=== PATIENT | female | born 1960 | race Caucasian/White ===

== ENCOUNTER → 2018-06-14 08:46 | Outpatient (CLI) | payer OTHER, SELFPAY ==
[2018-06-14 09:17] LABS: Hematocrit 42.3 % (36-46); Hemoglobin 14.7 g/dL (12.0-16.0); Mean Corpuscular HGB Conc 34.7 % (30-36); Mean Corpuscular Hemoglobin 31.3 PG (26-34); Mean Corpuscular Volume 90.4 fL (80-100); Platelet Count 151 X10^3/uL (150-400); Red Blood Cell Count 4.67 X10^6/uL (4.0-5.2); Red Cell Distribution Width 13.3 % (11.6-14.8); White Blood Cell Count 6.3 X10^3/uL (4.5-11.0)
[2018-06-14 09:18] LABS: Add Manual Diff / Slide Review YES
[2018-06-14 09:33] LABS: Morphology Comment Normal Morphology; Neutrophils Absolute Manual 2646 /uL (3000-5900); Total Cells Counted 100
[2018-06-14 10:04] LABS: Alanine Aminotransferase 82 IU/L (9-52); Albumin 3.9 g/dL (3.5-5.0); Albumin Globulin Ratio 1.6 (1.0-2.8); Alkaline Phosphatase 60 U/L (38-126); Aspartate Aminotransferase 38 IU/L (14-36); Bilirubin Total 0.5 mg/dL (0.2-1.3); Blood Urea Nitrogen 16 mg/dL (7-17); Calcium 8.8 mg/dL (8.4-10.2); Carbon Dioxide 23 mmol/L (22-32); Chloride 107 mmol/L (98-107); Cholesterol 135 mg/dL (140-199); Estimated Glomerular Filt Rate > 60.0 mL/min (>60); Globulin 2.5 g/dL (1.7-4.1); Glucose 96 mg/dL (70-100); HDL Cholesterol 32 mg/dL (40-60); HEMOLYSIS < 15 (0-50); LDL Cholesterol Calculated 82 mg/dL (<100); Magnesium 2.1 mg/dL (1.6-2.3); Sodium 138 mmol/L (137-145); Total Protein 6.4 g/dL (6.3-8.2); Triglycerides 106 mg/dL (35-150)
[2018-06-14 10:07] LABS: C-Reactive Protein Quant < 0.5 mg/dL (<1.0)
[2018-06-14 10:47] LABS: Vitamin B12 510 pg/mL (239-931)
[2018-06-16 18:02] LABS: Homocysteine 10.3 umol/L (< 10.4)
== END ==
PROVIDERS: PCP Naturopath; Visit Provider Naturopath
DX: Z00.00 Encounter for general adult medical examination without abnormal findings (principal); I48.91 Unspecified atrial fibrillation; E72.11 Homocystinuria
CPT/HCPCS: 36415; 80053; 80061; 82607; 83090; 83735; 85025; 86140

== ENCOUNTER → 2018-07-10 16:06 | Outpatient (CLI) | payer OTHER, SELFPAY ==
--- NOTE | 2018-07-10 | DI.MG.S_ITS ---
BILATERAL DIGITAL SCREENING MAMMOGRAM 3D/2D WITH CAD: 07/10/2018 CLINICAL: Routine screening. Family history of breast cancer. Comparison is made to exams dated: 05/05/2016 mammogram, 02/20/2012 mammogram - , and 09/12/2010 mammogram - [facility]. The tissue of both breasts is predominantly fatty. Current study was also evaluated with a Computer Aided Detection (CAD) system. No significant masses, calcifications, or other findings are seen in either breast. There has been no significant interval change. IMPRESSION: NEGATIVE There is no mammographic evidence of malignancy. A 1 year screening mammogram is recommended. This exam was interpreted at Station ID: [id number]. NOTE: For mammograms, a report in lay terms will be sent to the patient. Approximately 15% of breast malignancies will not be visualized mammographically. In the management of a palpable breast mass, a negative mammogram must not discourage biopsy of a clinically suspicious lesion. Electronically Signed By: Lenka white/tyra:07/10/2018 18:30:58 letter sent: Normal Exam ACR BI-RADS Category 1: Negative [id number]
== END ==
PROVIDERS: PCP Naturopath; Visit Provider Naturopath
DX: Z12.31 Encounter for screening mammogram for malignant neoplasm of breast (principal); Z80.3 Family history of malignant neoplasm of breast
CPT/HCPCS: 77063; 77067

== ENCOUNTER 2018-07-22 18:51 | Inpatient (IN) | payer OTHER, SELFPAY ==
[2018-07-22] VITALS (15 sets, daily range): BP systolic 91–125; BP diastolic 47–88; PULSE 134–180; RESP 12–23; O2SAT 94–100; BMI 42.4
--- NOTE | 2018-07-22 19:05 | DI.RAD.S_ITS ---
PROCEDURE: XR CHEST 1V INDICATIONS: afib/chest pain/sob TECHNIQUE: One view of the chest was acquired. COMPARISON: [facility], , CHEST 1 VIEW, 10/06/2014, 7:57. FINDINGS: Surgical changes and devices: None. Lungs and pleura: Lungs are clear. No pleural effusions or pneumothorax. Mediastinum: Mediastinal contours appear normal. Heart size is enlarged. Bones and chest wall: No suspicious bony lesions. Overlying soft tissues appear unremarkable. IMPRESSION: No acute cardio pulmonary pathology. Dictated by: Joe Boykin M.D. on 07/22/2018 at 19:25 Approved by: Joe Boykin M.D. on 07/22/2018 at 19:25
[2018-07-22 19:55] LABS: Add Manual Diff / Slide Review NO; Basophils Absolute Auto 100 /uL (0-100); Basophils Percent Auto 1.1 % (0-2); Eosinophils Absolute Auto 300 /uL (0-450); Eosinophils Percent Auto 3.9 % (2-4); Hematocrit 46.1 % (36-46); Hemoglobin 15.7 g/dL (12.0-16.0); Lymphocytes Absolute Auto 2300 /uL (1100-4500); Lymphocytes Percent Auto 27.7 % (25-40); Mean Corpuscular Hemoglobin 31.3 PG (26-34); Mean Corpuscular Volume 92.2 fL (80-100); Monocytes Absolute Auto 800 /uL (0-900); Monocytes Percent Auto 9.8 % (3-14); Neutrophils Absolute Auto 4800 /uL (1500-7000); Neutrophils Percent Auto 57.5 % (50-75); Platelet Count 169 X10^3/uL (150-400); Red Cell Distribution Width 13.4 % (11.6-14.8); White Blood Cell Count 8.4 X10^3/uL (4.5-11.0)
--- NOTE | 2018-07-22 20:06 | ED.ARRPALP ---
HPI - Arrhythmia/Palpitations General Chief Complaint: Arrhythmia/Palpitations Stated Complaint: thinks she is in AFIB Time Seen by Provider: 07/22/18 18:57 Source: patient and family Mode of arrival: ambulatory Limitations: no limitations History of Present Illness HPI narrative: 50-year-old female nonsmoker with history of AFib presents with rapid heart rate, palpitations or and chest pressure for 23 hr. She is not dizzy or weak or lightheaded. She has a low chads score and is therefore not anticoagulated. Her negative assembler is Dr. Pierre in [place] and she was just seen by him on 07/18. She is not short of breath and denies caffeine, nicotine or alcohol. Patient takes Cardizem at home and took an additional dose as directed by her negative assembler with no improvement MD complaint: rapid heart beat, heart racing, palpitations and atrial fibrillation Onset (ago): hour(s) Duration: constant Severity: moderate Context: occurred during rest Arrhythmia history: atrial fibrillation Associated symptoms: chest pain Treatments prior to arrival: vagal maneuvers and calcium channel balta Related Data Home Medications Medication Instructions Recorded Confirmed CHOLECALCIFEROL (VITAMIN D) 2,000 iu PO QDAY #0 03/20/11 05/27/18 diltiazem CD 120 mg 120 mg PO DAILY 06/20/18 capsule,extended release 24 hr probiotics and prebiotics PO 06/20/18 Allergies Allergy/AdvReac Type Severity Reaction Status Date / Time CLASS: 24:12 - Vasodilating AdvReac Severe migrain Uncoded 07/22/18 19:00 Agents headache Review of Systems Constitutional Denies chills, Denies fever(s), Denies lethargy and Denies weakness Eyes Denies change in vision, Denies eye discharge, Denies irritation and Denies loss of vision ENT Ears, Nose, Mouth, and Throat: Denies change in voice, Denies neck pain and Denies sore throat Cardiovascular Reports chest pain, Reports rapid heart rate, Reports irregular heart rhythm, Denies lightheadedness, Reports palpitations, Denies dyspnea, Denies dyspnea on exertion and Denies orthopnea Respiratory Denies cough, Denies dyspnea, Denies dyspnea on exertion and Denies wheezing Gastrointestinal Gastrointestinal: Denies abdominal pain, Denies change in bowel habits, Denies diarrhea, Denies nausea and Denies vomiting Genitourinary Denies hematuria, Denies flank pain, Denies urinary incontinence and Denies urinary urgency Musculoskeletal Denies neck pain Integumentary/Breasts Denies pruritus, Denies erythema, Denies rash and Denies wounds Neurologic Denies confusion, Denies loss of vision and Denies weakness Psychiatric Denies anxiety, Denies confusion, Denies depression, Denies homicidal ideation and Denies suicidal ideation Endocrine Reports palpitations Hematologic/Lymphatic Denies easy bruising Allergic/Immunologic Denies wheezing [facility] Medical History Obstructive sleep apnea syndrome, moderate (Chronic) Family History Father Lymphoma, unspecified lymphoma, unspecified lymphoma region Mother Cerebrovascular accident (CVA), unspecified mechanism Social History Smoking Status: Never smoker alcohol intake: current Family History Father Lymphoma, unspecified lymphoma, unspecified lymphoma region Mother Cerebrovascular accident (CVA), unspecified mechanism Social History Smoking Status: Never smoker alcohol intake: current Exam Narrative Exam Narrative: GENERAL: 58-year-old female appears younger than stated age, anxious HEAD: Atraumatic. Normocephalic. No temporal or scalp tenderness. EYES: Pupils equal round and reactive. Extraocular motions intact. No scleral icterus. No injection or drainage. ENT: Nose without bleeding, purulent drainage or septal hematoma. Throat without erythema, tonsillar hypertrophy or exudate. Uvula midline. Airway patent. NECK: Trachea midline. No JVD or lymphadenopathy. Supple, nontender, no meningeal signs. CARDIOVASCULAR: Rapid rate and irregular rhythm without murmurs, gallops, or rubs. RESPIRATORY: Clear to auscultation. Breath sounds equal bilaterally. No wheezes, rales, or rhonchi. GASTROINTESTINAL: Abdomen soft, non-tender, nondistended. No hepato-splenomegaly, or palpable masses. No guarding. EXTREMITIES: No clubbing, cyanosis, or edema. No joint tenderness, effusion, or edema noted. BACK: Nontender without deformity or crepitance. No flank tenderness. NEURO: AOx3. SKIN: No rash or erythema. Initial Vital Signs Initial Vital Signs: Vital Signs Pulse Rate 162 H 07/22/18 19:00 Respiratory Rate 23 07/22/18 19:00 Blood Pressure 108/75 07/22/18 19:00 Pulse Oximetry 99 07/22/18 19:00 Procedures Cardioversion Cardiac rhythm prior to cardioversion: rapid atrial fib Stability: Unstable ASA Class: II Mallampati Airway Classification: Class I Time of Last PO Intake: 14:00 Preparation: diagnostic cardiac sonographer applied, pulse oximeter, capnometry used, supplemental O2 applied, suction/airway equipment at bedside and IV secured IV Propofol Dose (mgs): 100 Joules used: 150 and 200 ED Sedation Level: Moderate (Concious) Cardiac rhythm post-cardioversion: Rapid Atrial Fib (no change) Patient tolerated procedure sedation: Well Complications sedation: none Procedural Sedation Patient Age: Patient is 5yrs or older Indication: other ASA Class: II Mallampati Airway Classification: Class I Preparation: diagnostic cardiac sonographer applied, pulse oximeter, capnometry used, supplemental O2 applied, suction/airway equipment at bedside and IV secured IV Propofol dose (mg): 100 ED Sedation Level: Moderate (Concious) Patient Tolerated Procedure: Well Complications: none Additional Comments: time of sedation 10 minutes Course Orders Ordered: ED Orders 07/22/18 19:05 XR chest 1V Stat EKG-12 Lead Stat 07/22/18 19:50 Basic Metabolic Panel Stat Complete Blood Count AUTO DIFF Stat Magnesium Stat Thyroid Stimulating Hormone Stat Troponin & CK Cardiac Panel Stat 07/23/18 Urine Drug Screen, Rapid Stat 07/23/18 06:00 EC echo doppler complete Routine Basic Metabolic Panel Routine Magnesium Routine Troponin I Routine Sodium Chloride (Normal Saline 0.9%) 1,000 mls @ 150 mls/hr IV CONT ETHAN Last Infusion: 07/23/18 00:36 Dose: 0 mls/hr Admin: 07/22/18 20:10 Dose: 150 mls/hr Diltiazem HCl 125 mg/ Dextrose 125 mls @ 5 mls/hr IV TITRATE ETHAN; Protocol Last Titration: 07/23/18 00:36 Dose: 0 mg/hr, 0 mls/hr Admin: 07/22/18 22:24 Dose: 5 mg/hr, 5 mls/hr Discontinued Medications Diltiazem HCl (Cardizem) 10 mg IV NOW ONE Stop: 07/22/18 20:07 Last Admin: 07/22/18 20:10 Dose: 10 mg Enoxaparin Sodium (Lovenox) 40 mg SUBCUT NOW ONE Stop: 07/22/18 21:30 Propofol (Diprivan) 100 mg IV NOW ONE Stop: 07/22/18 21:58 Last Admin: 07/22/18 21:23 Dose: 100 mg Vital Signs - 8 hr 07/22/18 19:00 07/22/18 19:39 07/22/18 20:10 Pulse Rate 162 H 134 H 180 H Respiratory Rate 23 13 Blood Pressure 125/88 Blood Pressure [Right Arm] 108/75 113/71 Pulse Oximetry 99 100 07/22/18 20:23 07/22/18 20:32 07/22/18 21:24 Pulse Rate 135 H 147 H 155 H Respiratory Rate 23 15 20 Blood Pressure Blood Pressure [Right Arm] 114/80 114/80 94/78 Pulse Oximetry 100 94 07/22/18 21:29 07/22/18 21:32 07/22/18 21:37 Pulse Rate 150 H 157 H 147 H Respiratory Rate 20 22 19 Blood Pressure Blood Pressure [Right Arm] 94/57 L 103/49 L 91/77 Pulse Oximetry 94 100 99 07/22/18 21:41 07/22/18 21:42 07/22/18 21:47 Pulse Rate 144 H 177 H 147 H Respiratory Rate 12 21 21 Blood Pressure Blood Pressure [Right Arm] 98/71 98/71 Pulse Oximetry 100 100 07/22/18 21:52 07/22/18 22:24 07/22/18 23:40 Pulse Rate 170 H 160 H 150 H Respiratory Rate 15 17 Blood Pressure 116/72 Blood Pressure [Right Arm] 108/69 106/47 L Pulse Oximetry 100 98 MDM - Arrhythmia/Palpitations Lab Data Result diagrams: 07/22/18 19:50 07/22/18 19:50 Lab Results 07/22/18 07/22/18 07/22/18 Range/Units 19:50 19:50 19:50 WBC 8.4 (4.5-11.0) X10^3/uL RBC 5.00 (4.0-5.2) X10^6/uL Hgb 15.7 (12.0-16.0) g/dL Hct 46.1 H (36-46) % MCV 92.2 (80-100) fL MCH 31.3 (26-34) PG MCHC 34.0 (30-36) % RDW 13.4 (11.6-14.8) % Plt Count 169 (150-400) X10^3/uL Neut % (Auto) 57.5 (50-75) % Lymph % (Auto) 27.7 (25-40) % [place] % (Auto) 9.8 (3-14) % Eos % (Auto) 3.9 (2-4) % Baso % (Auto) 1.1 (0-2) % Neut # (Auto) 4800 (4109-7215) /uL Lymph # (Auto) 2300 (3376-7793) /uL [place] # (Auto) 800 (0-900) /uL Eos # (Auto) 300 (0-450) /uL Baso # (Auto) 100 (0-100) /uL Sodium 140 (137-145) mmol/L Potassium 3.8 (3.4-5.1) mmol/L Chloride 106 (98-107) mmol/L Carbon Dioxide 26 (22-32) mmol/L BUN 15 (7-17) mg/dL Creatinine 0.90 (0.52-1.04) mg/dL Estimated GFR > 60.0 (>60) mL/min BUN/Creatinine Ratio 16.7 (6-22) Glucose 111 H (70-100) mg/dL Calcium 9.3 (8.4-10.2) mg/dL Magnesium 2.3 (1.6-2.3) mg/dL Total Creatine Kinase 62 (30-135) U/L CK-MB (CK-2) TNP CK-MB (CK-2) Rel Index TNP Troponin I < 0.012 (0.01-0.034) ng/mL TSH 2.88 (0.47-4.68) uIU/mL Point of Care Testing Test Results Not applicable ECG Data Interpretation: Rapid AFib in the 170s [facility] Narrative Medical decision making narrative: Patient in rapid AFib for 24 hr with chest pain. Chest score 1 and therefore not anticoagulated but given duration of symptoms and presence of chest pain the patient is perfect candidate for cardioversion. I have discussed this case with her negative assembler he shares the opinion. She has unsuccessfully cardioverted and therefore placed on a Cardizem drip and admitted into the ICU. She has a history with Dr. cordon home but has not been seen since July 20, 2015 and I've consulted with her partner Dr. Tran whom is railroad design consultant and verifires that given extensive length of time since last visit with group that she is most appropriately admitted to hospitalist service Discharge Plan Departure Interventions: ED Discharge Assessment Last Done: 07/23/18 00:30 Admit Date/Time: 07/22/18 21:44 Admit Provider: Mechelle Albert
[2018-07-22 20:10] LABS: BUN Creatinine Ratio 16.7 (6-22); Blood Urea Nitrogen 15 mg/dL (7-17); Calcium 9.3 mg/dL (8.4-10.2); Carbon Dioxide 26 mmol/L (22-32); Chloride 106 mmol/L (98-107); Creatine Kinase 62 U/L (30-135); Estimated Glomerular Filt Rate > 60.0 mL/min (>60); Glucose 111 mg/dL (70-100); HEMOLYSIS < 15 (0-50); Magnesium 2.3 mg/dL (1.6-2.3); Potassium 3.8 mmol/L (3.4-5.1); Sodium 140 mmol/L (137-145)
[2018-07-22] MEDS: dilTIAZem 5 MG/ML SDV 10 MG IV (20:10)
[2018-07-22] MEDS: SODIUM CHLORIDE 0.9% 1,000 ML 150 ML IV (20:10)
[2018-07-22 20:21] LABS: Troponin I < 0.012 ng/mL (0.01-0.034)
[2018-07-22 20:58] LABS: Thyroid Stimulating Hormone 2.88 uIU/mL (0.47-4.68)
[2018-07-22] MEDS: PROPOFOL 200 MG/20 ML VIAL 100 MG IV (21:23)
[2018-07-22] MEDS: dilTIAZem 125 MG in DEXTROSE 5 % IN WATER 100 ML IV (22:24)
--- NOTE | 2018-07-22 23:35 | PM.HP.1 ---
History of Present Illness Date Patient Seen: 07/22/18 Time Patient Seen: 23:35 Chief complaint: thinks she is in AFIB Narrative: The patient is a 58-year-old female with PMH of intermittent, persistent atrial fibrillation (dx in 2014), RADHA (on CPAP), morbid obesity (BMI 46), aerophasia, large hiatal hernia, and intermittent GI discomfort. Currently not anti-coagulated due to low CHADs2-VASc score of 1. No prior history of hypertension, coronary artery disease, diabetes, dyslipidemia, or thyroid disease. No known family history of premature heart disease. Patient presented to the ED on 07/22/2018 with complaints of palpitations. Symptom onset within 24 hr of ED presentation. No other associated symptoms reported. Denies headache, chest pain, dizziness, lightheadedness, decreased exercise tolerance, diaphoresis, nausea, vomiting, or abdominal pain. She has not been suffering from decreased exercise tolerance. On presentation to the ED, EKG revealed AFib RVR of 149. Patient is not anti-coagulated; however, does take fairly often ASA 325 mg QD. Patient was cardioverted twice in the ED, attemps were unsuccessful in restoring normal rhythm. Consequently, patient was given IV Cardizem bolus and started on a Cardizem drip. No prior history of cardioversion. Patient follows with Dr. Pierre (cardiology) in [place]. Last month had an echocardiogram that revealed a congenital valvular heart defect. On Sunday, had a CV CT w/ a reported calcium score of 1. Patient History Medical History Obstructive sleep apnea syndrome, moderate (Chronic) Family History Father Lymphoma, unspecified lymphoma, unspecified lymphoma region Mother Cerebrovascular accident (CVA), unspecified mechanism Social History household members: spouse Smoking Status: Never smoker alcohol intake: former Family & Social History Family History Father Lymphoma, unspecified lymphoma, unspecified lymphoma region Mother Cerebrovascular accident (CVA), unspecified mechanism Safety & Behavioral: Feels Safe in Current Yes Environment Tobacco & Substance use: Smoking Status Never smoker alcohol intake current Substance Use Type does not use Meds Home Medications Medication Instructions Recorded Confirmed Type CHOLECALCIFEROL (VITAMIN D) 2,000 iu PO QDAY #0 03/20/11 05/27/18 History diltiazem CD 120 mg 120 mg PO DAILY 06/20/18 History capsule,extended release 24 hr probiotics and prebiotics PO 06/20/18 History Allergies Allergy/AdvReac Type Severity Reaction Status Date / Time CLASS: 24:12 - Vasodilating AdvReac Severe migrain Uncoded 07/22/18 19:00 Agents headache Review of Systems Review of Systems All systems reviewed & are unremarkable except as noted in HPI and below Exam Vital Signs (past 8 hours): - 07/22/18 19:00 07/22/18 19:39 07/22/18 20:10 Pulse Rate 162 H 134 H 180 H Respiratory Rate 23 13 Blood Pressure 125/88 Blood Pressure [Right Arm] 108/75 113/71 Pulse Oximetry 99 100 07/22/18 20:23 07/22/18 20:32 07/22/18 21:24 Pulse Rate 135 H 147 H 155 H Respiratory Rate 23 15 20 Blood Pressure Blood Pressure [Right Arm] 114/80 114/80 94/78 Pulse Oximetry 100 94 07/22/18 21:29 07/22/18 21:32 07/22/18 21:37 Pulse Rate 150 H 157 H 147 H Respiratory Rate 20 22 19 Blood Pressure Blood Pressure [Right Arm] 94/57 L 103/49 L 91/77 Pulse Oximetry 94 100 99 07/22/18 21:41 07/22/18 21:42 07/22/18 21:47 Pulse Rate 144 H 177 H 147 H Respiratory Rate 12 21 21 Blood Pressure Blood Pressure [Right Arm] 98/71 98/71 Pulse Oximetry 100 100 07/22/18 21:52 07/22/18 22:24 Pulse Rate 170 H 160 H Respiratory Rate 15 Blood Pressure 116/72 Blood Pressure [Right Arm] 108/69 Pulse Oximetry 100 Oxygen Delivery Method Room Air Narrative Exam Narrative: Constitutional: NAD, anxiet Neurologic: AOx3, no focal neurological deficits Head: NC, AT Eyes: PERRL, EOMI, Ears: external ears normal, no otorrhea Nose: external nose normal, no rhinorrhea or epistaxis Throat: DRY MM, oropharynx w/o exudate Neck: no masses, lymphadenopathy, or JVD Chest / Respiratory: equal chest rise, unlabored respiratory effort, RH 160-170s, no palpable discomfort Heart / CV: irregularly irregular, + murmur, distant tones, HR 160-177 on tele monitor, SBP range 120-130 mmHg Abdomen / GI: round, NT, ND, + BS, no organomegaly : no suprapubic tenderness, no CVA Peripheral / Vascular: warm to touch, DP and PT pulses palpable, trace b/l ankle edema Musc: full ROM of upper and lower extremities, adequate muscle tone and bulk, equal strength b/l Skin: no ecchymosis or suspicious lesions / ulcers, dry skin, diminished skin turgor < 3 sec Objective Labs Result Diagrams: 07/22/18 19:50 07/22/18 19:50 Labs: Laboratory Results - last 24 hr 07/22/18 07/22/18 07/22/18 19:50 19:50 19:50 WBC 8.4 RBC 5.00 Hgb 15.7 Hct 46.1 H MCV 92.2 MCH 31.3 MCHC 34.0 RDW 13.4 Plt Count 169 Neut % (Auto) 57.5 Lymph % (Auto) 27.7 [place] % (Auto) 9.8 Eos % (Auto) 3.9 Baso % (Auto) 1.1 Neut # (Auto) 4800 Lymph # (Auto) 2300 [place] # (Auto) 800 Eos # (Auto) 300 Baso # (Auto) 100 Sodium 140 Potassium 3.8 Chloride 106 Carbon Dioxide 26 BUN 15 Creatinine 0.90 Estimated GFR > 60.0 BUN/Creatinine Ratio 16.7 Glucose 111 H Calcium 9.3 Magnesium 2.3 Total Creatine Kinase 62 CK-MB (CK-2) TNP CK-MB (CK-2) Rel Index TNP Troponin I < 0.012 TSH 2.88 Assessment & Plan Assessment & Plan narrative: Paroxysmal atrial fibrillation, present on admission EKG: AFIB RVR (v-rate 149), R-BBB, non-specific Q wave, ST/T changes Trop < 0.012 Asymptomtic w/ reported fairly frequent recurrence [id number] Score 1 (female gender). RF not noted on [id number] score: hiatal hernia, potential congenital valvular defect, aortic stenosis [employer]ON APPRENTICE not chronically anti-coagulated d/t low score; however, was using ASA 325 mg daily s/p unsuccessful DC cardioversion, no prior h/o cardioversion received 10 mg IV diltiazem bolus, followed by diltiazem gtt - HR remains poorly controlled received lovenox 40 mg SQ lovenox in ED, dosing based on hospitalized medical patients w/ acute ilness at [id number] risk for VTE - continue diltiazem gtt, already at 15 mg/hr w/ poorly controlled ventricular rate in the 160-170s (patient asymptomatic) - resume MASON APPRENTICE diltiazem CD 120 mg daily, consider increasing dose - start metoprolol IV 5 mg Q6H - IVF - ASA 81 mg QD, will continue at a reduced dose; however, ASA is no longer recommended for anticoagulation to prevent stroke, consider either rivaroxaban or apixaban (based on high weight / BMI) as alternatives for stroke prevention. May benefit from an evaluation for a WATCHMAN implant. - Request records from patient's particle board supervisor, Ignacio Vigil in [place] - Risk stratify, FLP and A1C - TSH WNL - Replete electrolytes Aortic Valve Stenosis, non-rheumatic, present on hospital admission 2/2 congenital heart disease ? Although her CHADs2-VASc score is 1, she is at a risk for thromboembolic events not in lieu of valvular heart disease. - see 'afib rvr' plan of care Dehydration Potentially also contributing to AFIB. Reports some intermittent GI losses - IVF at 150 ml/hr, reduce rate at 6 am to 100 ml/hr - Strict I/O monitoring RADHA, on CPAP Typically compliant, however, has not used for the past 3-4 days d/t abdominal discomfort Small Intestinal Bacterial Overgrowth (SIBO), present on admission [employer]ON APPRENTICE treated w/ dietary modification, probiotics / biofilm eradicate her, and nystatin (anti-fungal) intestinal permeability, inflammation, insulin & leptin resistance, and metabolic problems - all RF for developing heart disease - Concern for intestinal absorption of patient's CCB in lieu of SIBO, holding [employer]ON APPRENTICE treatment at this time - Will need to be mindful of NOACs, if any started, and rate control agents as their absorption may be reduced with concurrent abx or anti-fungal therapy Morbid Obesity, BMI 44.3, chronic condition - Weight reduction recommended
--- NOTE | 2018-07-22 23:39 | P.HP_ITS ---
History of Present Illness Date Patient Seen: 07/22/18 Time Patient Seen: 23:35 Chief complaint: thinks she is in AFIB Narrative: The patient is a 58-year-old female with PMH of int ermittent, persistent atrial fibrillation (dx in 2014), RADHA (on CPAP), morbid obesity (BMI 46), aerophasia, large hiatal hernia, and intermittent GI discomfort. Currently not anti-coagulated due to low CHADs2-VASc score of 1. No prior history of hypertension, coronary artery disease, diabetes, d yslipidemia, or thyroid disease. No known family history of premature heart disease. Patient presented to the ED on 07/22/2018 with complaints of palpitations. Symptom onset within 24 hr of ED presentation. No other associated symptoms reported. Denies headache, chest pain, dizziness, lightheadedness, decreased exercise tolerance, diaphoresis, nausea, vomiting, or abdominal pain. She has not been suffering from decreased exercise tolerance. On presentation to the ED, EKG revealed AFib RVR of 149. Patient is not anti-coagulated; however, does take fairly often ASA 325 mg QD. Patient was cardioverted twice in the ED, attemps were unsuccessful in restoring normal rhythm. Consequently, patient was given IV Cardizem bolus and started on a Cardizem drip. No prior history of cardioversion. Patient follows with Dr. Pierre (cardiology) in [place]. Last month had an echocardiogram that revealed a congenital valvular heart defect. On Sunday, had a CV CT w/ a reported calcium score of 1. Patient History Medical History Obstructive sleep apnea syndrome, moderate (Chronic) Family History Father Lymphoma, unspecified lymphoma, unspecified lymphoma region Mother Cerebrovascular accident (CVA), unspecified mechanism Social History household members: spouse Smoking Status: Never smoker alcohol intake: former Family & Social History Family History Father Lymphoma, unspecified lymphoma, unspecified lymphoma region Mother Cerebrovascular accident (CVA), unspecified mechanism Safety & Behavioral: Feels Safe in Current Yes Environment Tobacco & Substance use: Smoking Status Never smoker alcohol intake current Substance Use Type does not use Meds Home Medications Medication Instructions Recorded Confirmed Type CHOLECALCIFEROL (VITAMIN D) 2,000 iu PO QDAY #0 03/20/11 05/27/18 History diltiazem CD 120 mg 120 mg PO DAILY 06/20/18 History capsule,extended release 24 hr probiotics and prebiotics PO 06/20/18 History Allergies Allergy/AdvReac Type Severity Reaction Status Date / Time CLASS: 24:12 - Vasodilating AdvReac Severe migrain Uncoded 07/22/18 19:00 Agents headache Review of Systems Review of Systems All systems reviewed & are unremarkable except as noted in HPI and below Exam Vital Signs (past 8 hours): - 07/22/18 19:00 07/22/18 19:39 07/22/18 20:10 Pulse Rate 162 H 134 H 180 H Respiratory Rate 23 13 Blood Pressure 125/88 Blood Pressure [Right Arm] 108/75 113/71 Pulse Oximetry 99 100 07/22/18 20:23 07/22/18 20:32 07/22/18 21:24 Pulse Rate 135 H 147 H 155 H Respiratory Rate 23 15 20 Blood Pressure Blood Pressure [Right Arm] 114/80 114/80 94/78 Pulse Oximetry 100 94 07/22/18 21:29 07/22/18 21:32 07/22/18 21:37 Pulse Rate 150 H 157 H 147 H Respiratory Rate 20 22 19 Blood Pressure Blood Pressure [Right Arm] 94/57 L 103/49 L 91/77 Pulse Oximetry 94 100 99 07/22/18 21:41 07/22/18 21:42 07/22/18 21:47 Pulse Rate 144 H 177 H 147 H Respiratory Rate 12 21 21 Blood Pressure Blood Pressure [Right Arm] 98/71 98/71 Pulse Oximetry 100 100 07/22/18 21:52 07/22/18 22:24 Pulse Rate 170 H 160 H Respiratory Rate 15 Blood Pressure 116/72 Blood Pressure [Right Arm] 108/69 Pulse Oximetry 100 Oxygen Delivery Method Room Air Narrative Exam Narrative: Constitutional: NAD, anxiet Neurologic: AOx3, no focal neurological deficits Head: NC, AT Eyes: PERRL, EOMI, Ears: external ears normal, no otorrhea Nose: external nose normal, no rhinorrhea or epistaxis Throat: DRY MM, oropharynx w/o exudate Neck: no masses, lymphadenopathy, or JVD Chest / Respiratory: equal chest rise, unlabored respiratory effort, RH 160-170 s, no palpable discomfort Heart / CV: irregularly irregular, + murmur, distant tones, HR 160-177 on tele monitor, SBP range 120-130 mmHg Abdomen / GI: round, NT, ND, + BS, no organomegaly : no suprapubic tenderness, no CVA Peripheral / Vascular: warm to touch, DP and PT pulses palpable, trace b/l ankle edema Musc: full ROM of upper and lower extremities, adequate muscle tone and bulk, equal strength b/l Skin: no ecchymosis or suspicious lesions / ulcers, dry skin, diminished skin turgor < 3 sec Objective Labs Result Diagrams: 07/22/18 19:50 07/22/18 19:50 Labs: Laboratory Results - last 24 hr 07/22/18 07/22/18 07/22/18 19:50 19:50 19:50 WBC 8.4 RBC 5.00 Hgb 15.7 Hct 46.1 H MCV 92.2 MCH 31.3 MCHC 34.0 RDW 13.4 Plt Count 169 Neut % (Auto) 57.5 Lymph % (Auto) 27.7 Gillespie % (Auto) 9.8 Eos % (Auto) 3.9 Baso % (Auto) 1.1 Neut # (Auto) 4800 Lymph # (Auto) 2300 Gillespie # (Auto) 800 Eos # (Auto) 300 Baso # (Auto) 100 Sodium 140 Potassium 3.8 Chloride 106 Carbon Dioxide 26 BUN 15 Creatinine 0.90 Estimated GFR > 60.0 BUN/Creatinine Ratio 16.7 Glucose 111 H Calcium 9.3 Magnesium 2.3 Total Creatine Kinase 62 CK-MB (CK-2) TNP CK-MB (CK-2) Rel Index TNP Troponin I < 0.012 TSH 2.88 Assessment & Plan Assessment & Plan narrative: Paroxysmal atrial fibrillation, present on admission EKG: AFIB RVR (v-rate 149), R-BBB, non-specific Q wave, ST/T changes Trop < 0.012 Asymptomtic w/ reported fairly frequent recurrence [id number] Score 1 (female gender). RF not noted on [id number] score: hiatal hernia, potential congenital valvular defect, aortic stenosis ACADEMIC VICE PRESIDENT not chronically anti-coagulated d/t low score; however, was using ASA 325 mg daily s/p unsuccessful DC cardioversion, no prior h/o cardioversion received 10 mg IV diltiazem bolus, followed by diltiazem gtt - HR remains poorly controlled received lovenox 40 mg SQ lovenox in ED, dosing based on hospitalized medical patients w/ acute ilness at [id number] risk for VTE - continue diltiazem gtt, already at 15 mg/hr w/ poorly controlled ventricular rate in the 160-170s (patient asymptomatic) - resume ACADEMIC VICE PRESIDENT diltiazem CD 120 mg daily, consider increasing dose - start metoprolol IV 5 mg Q6H - IVF - ASA 81 mg QD, will continue at a reduced dose; however, ASA is no longer recommended for anticoagulation to prevent stroke, consider either rivaroxaban or apixaban (based on high weight / BMI) as alternatives for stroke prevention. May benefit from an evaluation for a WATCHMAN implant. - Request records from patient's umbrella cutter, Ignacio Vigil in [place] - Risk stratify, FLP and A1C - TSH WNL - Replete electrolytes Aortic Valve Stenosis, non-rheumatic, present on hospital admission 2/2 congenital heart disease ? Although her CHADs2-VASc score is 1, she is at a risk for thromboembolic events not in lieu of valvular heart disease. - see 'afib rvr' plan of care Dehydration Potentially also contributing to AFIB. Reports some intermittent GI losses - IVF at 150 ml/hr, reduce rate at 6 am to 100 ml/hr - Strict I/O monitoring RADHA, on CPAP Typically compliant, however, has not used for the past 3-4 days d/t abdominal discomfort Small Intestinal Bacterial Overgrowth (SIBO), present on admission ACADEMIC VICE PRESIDENT treated w/ dietary modification, probiotics / biofilm eradicate her, and nystatin (anti-fungal) intestinal permeability, inflammation, insulin & leptin resistance, and m etabolic problems - all RF for developing heart disease - Concern for intestinal absorption of patient's CCB in lieu of SIBO, holding ACADEMIC VICE PRESIDENT treatment at this time - Will need to be mindful of NOACs, if any started, and rate control agents as their absorption may be reduced with concurrent abx or anti-fungal therapy Morbid Obesity, BMI 44.3, chronic condition - Weight reduction recommended
[2018-07-23] VITALS (27 sets, daily range): BP systolic 82–140; BP diastolic 34–78; PULSE 74–160; RESP 12–22; TEMP 36.6–37.1; O2SAT 92–98; BMI 44.3
--- NOTE | 2018-07-23 00:45 | ED_ITS ---
HPI - Arrhythmia/Palpitations General Chief Complaint: Arrhythmia/Palpitations Stated Complaint: thinks she is in AFIB Time Seen by Provider: 07/22/18 18:57 Source: patient and family Mode of arrival: ambulatory Limitations: no limitations History of Present Illness HPI narrative: 50-year-old female nonsmoker with history of AFib presents with rapid heart rate, palpitations or and chest pressure for 23 hr. She is not dizzy or weak or lightheaded. She has a low chads score and is therefore not anticoagulated. Her carbon brushes assembler is Dr. Pierre in [place] and she was just seen by him on 07/18. She is not short of breath and denies caffeine, nicotine or alcohol. Patient takes Cardizem at home and took an additional dose as directed by her carbon brushes assembler with no improvement MD complaint: rapid heart beat, heart racing, palpitations and atrial fibrillation Onset (ago): hour(s) Duration: constant Severity: moderate Context: occurred during rest Arrhythmia history: atrial fibrillation Associated symptoms: chest pain Treatments prior to arrival: vagal maneuvers and calcium channel balta Related Data Home Medications Medication Instructions Recorded Confirmed CHOLECALCIFEROL (VITAMIN D) 2,000 iu PO QDAY #0 03/20/11 05/27/18 diltiazem CD 120 mg 120 mg PO DAILY 06/20/18 capsule,extended release 24 hr probiotics and prebiotics PO 06/20/18 Allergies Allergy/AdvReac Type Severity Reaction Status Date / Time CLASS: 24:12 - Vasodilating AdvReac Severe migrain Uncoded 07/22/18 19:00 Agents headache Review of Systems Constitutional Denies chills, Denies fever(s), Denies lethargy and Denies weakness Eyes Denies change in vision, Denies eye discharge, Denies irritation and Denies loss of vision ENT Ears, Nose, Mouth, and Throat: Denies change in voice, Denies neck pain and Denies sore throat Cardiovascular Reports chest pain, Reports rapid heart rate, Reports irregular heart rhythm, Denies lightheadedness, Reports palpitations, Denies dyspnea, Denies dyspnea on exertion and Denies orthopnea Respiratory Denies cough, Denies dyspnea, Denies dyspnea on exertion and Denies wheezing Gastrointestinal Gastrointestinal: Denies abdominal pain, Denies change in bowel habits, Denies diarrhea, Denies nausea and Denies vomiting Genitourinary Denies hematuria, Denies flank pain, Denies urinary incontinence and Denies urinary urgency Musculoskeletal Denies neck pain Integumentary/Breasts Denies pruritus, Denies erythema, Denies rash and Denies wounds Neurologic Denies confusion, Denies loss of vision and Denies weakness Psychiatric Denies anxiety, Denies confusion, Denies depression, Denies homicidal ideation and Denies suicidal ideation Endocrine Reports palpitations Hematologic/Lymphatic Denies easy bruising Allergic/Immunologic Denies wheezing [facility] Medical History Obstructive sleep apnea syndrome, moderate (Chronic) Family History Father Lymphoma, unspecified lymphoma, unspecified lymphoma region Mother Cerebrovascular accident (CVA), unspecified mechanism Social History Smoking Status: Never smoker alcohol intake: current Family History Father Lymphoma, unspecified lymphoma, unspecified lymphoma region Mother Cerebrovascular accident (CVA), unspecified mechanism Social History Smoking Status: Never smoker alcohol intake: current Exam Narrative Exam Narrative: GENERAL: 58-year-old female appears younger than stated age, anxious HEAD: Atraumatic. Normocephalic. No temporal or scalp tenderness. EYES: Pupils equal round and reactive. Extraocular motions intact. No scleral icterus. No injection or drainage. ENT: Nose without bleeding, purulent drainage or septal hematoma. Throat without erythema, tonsillar hypertrophy or exudate. Uvula midline. Airway patent. NECK: Trachea midline. No JVD or lymphadenopathy. Supple, nontender, no meningeal signs. CARDIOVASCULAR: Rapid rate and irregular rhythm without murmurs, gallops, or rubs. RESPIRATORY: Clear to auscultation. Breath sounds equal bilaterally. No wheezes, rales, or rhonchi. GASTROINTESTINAL: Abdomen soft, non-tender, nondistended. No hepato- splenomegaly, or palpable masses. No guarding. EXTREMITIES: No clubbing, cyanosis, or edema. No joint tenderness, effusion, or edema noted. BACK: Nontender without deformity or crepitance. No flank tenderness. NEURO: AOx3. SKIN: No rash or erythema. Initial Vital Signs Initial Vital Signs: Vital Signs Pulse Rate 162 H 07/22/18 19:00 Respiratory Rate 23 07/22/18 19:00 Blood Pressure 108/75 07/22/18 19:00 Pulse Oximetry 99 07/22/18 19:00 Procedures Cardioversion Cardiac rhythm prior to cardioversion: rapid atrial fib Stability: Unstable ASA Class: II Mallampati Airway Classification: Class I Time of Last PO Intake: 14:00 Preparation: residential monitor applied, pulse oximeter, capnometry used, supplemental O2 applied, suction/airway equipment at bedside and IV secured IV Propofol Dose (mgs): 100 Joules used: 150 and 200 ED Sedation Level: Moderate (Concious) Cardiac rhythm post-cardioversion: Rapid Atrial Fib (no change) Patient tolerated procedure sedation: Well Complications sedation: none Procedural Sedation Patient Age: Patient is 5yrs or older Indication: other ASA Class: II Mallampati Airway Classification: Class I Preparation: residential monitor applied, pulse oximeter, capnometry used, supplemental O2 applied, suction/airway equipment at bedside and IV secured IV Propofol dose (mg): 100 ED Sedation Level: Moderate (Concious) Patient Tolerated Procedure: Well Complications: none Additional Comments: time of sedation 10 minutes Course Orders Ordered: ED Orders 07/22/18 19:05 XR chest 1V Stat EKG-12 Lead Stat 07/22/18 19:50 Basic Metabolic Panel Stat Complete Blood Count AUTO DIFF Stat Magnesium Stat Thyroid Stimulating Hormone Stat Troponin & CK Cardiac Panel Stat 07/23/18 Urine Drug Screen, Rapid Stat 07/23/18 06:00 EC echo doppler complete Routine Basic Metabolic Panel Routine Magnesium Routine Troponin I Routine Sodium Chloride (Normal Saline 0.9%) 1,000 mls @ 150 mls/hr IV CONT ETHAN Last Infusion: 07/23/18 00:36 Dose: 0 mls/hr Admin: 07/22/18 20:10 Dose: 150 mls/hr Diltiazem HCl 125 mg/ Dextrose 125 mls @ 5 mls/hr IV TITRATE ETHAN; Protocol Last Titration: 07/23/18 00:36 Dose: 0 mg/hr, 0 mls/hr Admin: 07/22/18 22:24 Dose: 5 mg/hr, 5 mls/hr Discontinued Medications Diltiazem HCl (Cardizem) 10 mg IV NOW ONE Stop: 07/22/18 20:07 Last Admin: 07/22/18 20:10 Dose: 10 mg Enoxaparin Sodium (Lovenox) 40 mg SUBCUT NOW ONE Stop: 07/22/18 21:30 Propofol (Diprivan) 100 mg IV NOW ONE Stop: 07/22/18 21:58 Last Admin: 07/22/18 21:23 Dose: 100 mg Vital Signs - 8 hr 07/22/18 19:00 07/22/18 19:39 07/22/18 20:10 Pulse Rate 162 H 134 H 180 H Respiratory Rate 23 13 Blood Pressure 125/88 Blood Pressure [Right Arm] 108/75 113/71 Pulse Oximetry 99 100 07/22/18 20:23 07/22/18 20:32 07/22/18 21:24 Pulse Rate 135 H 147 H 155 H Respiratory Rate 23 15 20 Blood Pressure Blood Pressure [Right Arm] 114/80 114/80 94/78 Pulse Oximetry 100 94 07/22/18 21:29 07/22/18 21:32 07/22/18 21:37 Pulse Rate 150 H 157 H 147 H Respiratory Rate 20 22 19 Blood Pressure Blood Pressure [Right Arm] 94/57 L 103/49 L 91/77 Pulse Oximetry 94 100 99 07/22/18 21:41 07/22/18 21:42 07/22/18 21:47 Pulse Rate 144 H 177 H 147 H Respiratory Rate 12 21 21 Blood Pressure Blood Pressure [Right Arm] 98/71 98/71 Pulse Oximetry 100 100 07/22/18 21:52 07/22/18 22:24 07/22/18 23:40 Pulse Rate 170 H 160 H 150 H Respiratory Rate 15 17 Blood Pressure 116/72 Blood Pressure [Right Arm] 108/69 106/47 L Pulse Oximetry 100 98 MDM - Arrhythmia/Palpitations Lab Data Result diagrams: 07/22/18 19:50 07/22/18 19:50 Lab Results 07/22/18 07/22/18 07/22/18 Range/Units 19:50 19:50 19:50 WBC 8.4 (4.5-11.0) X10^3/uL RBC 5.00 (4.0-5.2) X10^6/uL Hgb 15.7 (12.0-16.0) g/dL Hct 46.1 H (36-46) % MCV 92.2 (80-100) fL MCH 31.3 (26-34) PG MCHC 34.0 (30-36) % RDW 13.4 (11.6-14.8) % Plt Count 169 (150-400) X10^3/uL Neut % (Auto) 57.5 (50-75) % Lymph % (Auto) 27.7 (25-40) % [place] % (Auto) 9.8 (3-14) % Eos % (Auto) 3.9 (2-4) % Baso % (Auto) 1.1 (0-2) % Neut # (Auto) 4800 (7035-9014) /uL Lymph # (Auto) 2300 (4189-8405) /uL [place] # (Auto) 800 (0-900) /uL Eos # (Auto) 300 (0-450) /uL Baso # (Auto) 100 (0-100) /uL Sodium 140 (137-145) mmol/L Potassium 3.8 (3.4-5.1) mmol/L Chloride 106 (98-107) mmol/L Carbon Dioxide 26 (22-32) mmol/L BUN 15 (7-17) mg/dL Creatinine 0.90 (0.52-1.04) mg/dL Estimated GFR > 60.0 (>60) mL/min BUN/Creatinine Ratio 16.7 (6-22) Glucose 111 H (70-100) mg/dL Calcium 9.3 (8.4-10.2) mg/dL Magnesium 2.3 (1.6-2.3) mg/dL Total Creatine Kinase 62 (30-135) U/L CK-MB (CK-2) TNP CK-MB (CK-2) Rel Index TNP Troponin I < 0.012 (0.01-0.034) ng/mL TSH 2.88 (0.47-4.68) uIU/mL Point of Care Testing Test Results Not applicable ECG Data Interpretation: Rapid AFib in the 170s [facility] Narrative Medical decision making narrative: Patient in rapid AFib for 24 hr with chest pain. Chest score 1 and therefore not anticoagulated but given duration of symptoms and presence of chest pain the patient is perfect candidate for cardioversion. I have discussed this case with her carbon brushes assembler he shares the opinion. She has unsuccessfully cardioverted and therefore placed on a Cardizem drip and admitted into the ICU. She has a history with Dr. cordon home but has not been seen since July 20, 2015 and I've consulted with her partner Dr. Tran whom is special education supervisor and verifires that given extensive length of time since last visit with group that she is most appropriately admitted to hospitalist service Discharge Plan Departure Interventions: ED Discharge Assessment Last Done: 07/23/18 00:30 Admit Date/Time: 07/22/18 21:44 Admit Provider: Mechelle Albert
--- NOTE | 2018-07-23 00:45 | DI.ECHO.S_ITS ---
[facility]---------+ [facility] +---------+ : : [address] : : : : [id number] : : : : Phone: [phone]+ Echocardiogram Report + + :Name: JARVIS FITCH Study Date: 07/23/2018 Height: 66 in : :[facility] Exam Location: IS Weight: 263 lb: : Gender: Female BSA: 2.2 m2 : :: 1960 Age: 58 yrs BP: 98/58 mmHg: :Reason For Study: afib RVR : :Ordering Physician: Thomas : :Hospitalist Performed By: Nicci Page : :Referring: JAMES SALEH : + + Interpretation Summary The patient was in atrial fibrillation with heart rates between 74-100 bpm during the exam (New). The ejection fraction is estimated to be 60-65%. There has been no significant change in LV EF since the previous study. The right ventricle is normal in size and function. A bicuspid aortic valve cannot be excluded. Leaflet mobility is mildly reduced. The peak aortic velocity is 3.4 m/sec. The aortic valve mean gradient is 26.6 mmHg. The peak aortic velocity on the previous exam was 3.2 m/sec. Calculate EVARISTO is not right due to inaccurate LVOT diameter of 1.9cm. In 08/2016, LVOT diamter was abouit 2.1 cm. There is mild to moderate aortic stenosis. Procedure: A two-dimensional transthoracic echocardiogram with color flow and Doppler was performed. The study quality was technically adequate. Comparison is made with the echocardiogram of 08/30/2016. The patient was in atrial fibrillation with heart rates between 74-100 bpm during the exam. Left Ventricle: Left ventricular wall thickness is mildly increased. The left ventricle is grossly normal size. Proximal septal thickening is noted. There is no echo evidence for significant left ventricular outflow tract obstruction. There is no thrombus. The ejection fraction is estimated to be 60-65%. There has been no significant change since the previous study. There are no focal wall motion abnormalities. Diastolic function could not be accurately assessed due to atrial fibrillation. Right Ventricle: The right ventricle is normal in size and function. Atria: The left atrium is severely dilated. The left atrium has significantly increased in size since the prior echo exam. Right atrial size is normal. There is no Doppler evidence for an interatrial shunt. Mitral Valve: There is mild mitral annular calcification. There is mild mitral regurgitation. Aortic Valve: The aortic valve was not well visualized, there appears to be a raphe between the left and right coronary cusps. A bicuspid aortic valve cannot be excluded. The aortic valve is mildly calcified. Leaflet mobility is mildly reduced. The peak aortic velocity is 3.4 m/sec. The calculated aortic valve area is 0.76 cm2. The aortic valve mean gradient is 26.6 mmHg. The peak aortic velocity on the previous exam was 3.2 m/sec. There is mild to moderate aortic stenosis. There is trace aortic regurgitation. Tricuspid Valve: There is mild tricuspid regurgitation. The right ventricular systolic pressure is estimated to be at least 17 mmHg based on an estimated right atrial pressure of 3 mm Hg. Pulmonic Valve: The pulmonic valve is not well visualized. There is a trace or physiologic amount of pulmonic regurgitation. Great Vessels: The aortic root is normal size. The ascending aorta is mildly enlarged. The pulmonary artery is not well visualized, but is probably normal size. The IVC is of normal diameter and collapses greater than 50% with a sniff. This suggests a low right atrial pressure of 3 mm Hg. Pericardium/ Pleura There is no pericardial effusion. There is no pleural effusion. MMode/2D Measurements & Calculations LVIDd: 3.6 cm LVOT diam: 1.9 cm LVIDs: 3.4 cm Ao root diam: 3.3 cm FS: 5.4 % asc Aorta Diam: 3.7 cm EPSS: 0.24 cm IVSd: 1.1 cm LVPWd: 1.0 cm LV alvarez. diameter/BSA (cm/m^2): 1.6 LV sys. diameter/BSA (cm/m^2): 1.5 LA A2 area: 29.7 cm2 RA long axis: 5.9 cm LA A4 area: 28.4 cm2 RA area: 19.3 cm2 LA length (vol): 6.6 cm RA vol: 54.0 ml LA vol: 107.9 ml RA : 24.0 ml/m2 LA vol index: 48.0 ml/m2 IVC diam: 1.3 cm RVD1 (basal): 3.8 cm TAPSE: 2.0 cm Doppler Measurements & Calculations Ao V2 max: 337.3 cm/sec LVOT Max Alfredito: 87.4 cm/sec Ao V2 mean: 247.7 cm/sec LV V1 max P.1 mmHg Ao max P.5 mmHg LV V1 VTI: 17.3 cm Ao mean P.6 mmHg EVARISTO(I,D): 0.76 cm2 Ao V2 VTI: 66.8 cm EVARISTO(V,D): 0.76 cm2 sev ratio: 0.26 EVARISTO indexed to BSA (cm^2/m^2): 0.34 Med Peak E' Alfredito: 8.5 cm/sec TR max alfredito: 184.1 cm/sec Lat Peak E' Alfredito: 10.0 cm/sec TR max P.6 mmHg MV P1/2t: 55.0 msec PA V2 max: 63.7 cm/sec PA V2 mean: 46.5 cm/sec PA mean P.95 mmHg PA Accel Time: 0.13 sec MV P1/2t max alfredito: 98.6 cm/sec SV(LVOT): 50.7 ml MVA(P1/2t): 4.0 cm2 Reading Physician:TISH
[2018-07-23] MEDS: ENOXAPARIN 40 MG/0.4 ML SYRINGE SUBCUT ×2 (01:34→21:12)
[2018-07-23] MEDS: METOPROLOL TARTRATE 5 MG/5 ML INJ IV (01:40)
[2018-07-23 05:03] LABS: Urine Amphetamines Negative (Negative); Urine Barbiturates Negative (Negative); Urine Benzodiazepines Negative (Negative); Urine Cocaine Negative (Negative); Urine MDMA Negative (Negative); Urine Methadone Negative (Negative); Urine Methamphetamines Negative (Negative); Urine Morphine/Opi cutoff 2000 Negative (Negative); Urine Oxycodone Negative (Negative); Urine Phencyclidine Negative (Negative); Urine Tetrahydrocannabinol Negative (Negative); Urine Tricyclic Antidepressant Negative (Negative)
[2018-07-23 05:10] LABS: BUN Creatinine Ratio 17.1 (6-22); Blood Urea Nitrogen 12 mg/dL (7-17); Calcium 8.6 mg/dL (8.4-10.2); Carbon Dioxide 22 mmol/L (22-32); Chloride 111 mmol/L (98-107); Estimated Glomerular Filt Rate > 60.0 mL/min (>60); Glucose 100 mg/dL (70-100); HEMOLYSIS < 15 (0-50); Magnesium 2.2 mg/dL (1.6-2.3); Potassium 3.6 mmol/L (3.4-5.1); Sodium 142 mmol/L (137-145)
[2018-07-23 05:17] LABS: Cholesterol 133 mg/dL (140-199); HDL Cholesterol 37 mg/dL (40-60); LDL Cholesterol Calculated 78 mg/dL (<100); Triglycerides 92 mg/dL (35-150)
[2018-07-23 05:21] LABS: Troponin I < 0.012 ng/mL (0.01-0.034)
[2018-07-23 05:46] LABS: Hemoglobin A1C% w Est Avg Glu 4.9 % (4.0-6.0)
[2018-07-23] MEDS: SODIUM CHLORIDE 0.9% 1,000 ML 150 ML IV (07:13)
--- NOTE | 2018-07-23 07:34 | PC.NURSE ---
Addendum entered by Catina López R.N. 07/23/18 07:38: 0600 Pt remains in AFib rate more controlled w/IV metroprolol started. Diltiazem gtt continues at 5mg/hr. HR increased above 120 to 150 when OOB to commode. Pt denies pain, SOB. Echo today. Original Note: NOC Shift Admit: Pt admitted for AFib RVR. Pt w/history of intermittent AFib vs. rate controlled Afib. Currently HR 160 to 170 SBP stable, pt denies dizziness, SOB. Denies pain. Lungs clear, sats stable on room air. Diltiazem gtt only running at 2mls/hr when transferred from ED, RN w/pt unaware. Dilt. increased to 15mg/hr. Pt oriented to ICU care, enviroment. CHAIR SPRING ASSEMBLER in to assess pt.
[2018-07-23] MEDS: ASPIRIN EC 81 MG TABLET PO (09:30)
[2018-07-23] MEDS: dilTIAZem CD 120 MG CAP PO ×2 (09:31→21:11)
[2018-07-23] MEDS: METOPROLOL IR 25 MG TABLET PO ×3 (10:08→21:11)
[2018-07-23] MEDS: dilTIAZem 125 MG in DEXTROSE 5 % IN WATER 100 ML 15 ML IV (10:37)
[2018-07-23] MEDS: dilTIAZem 30 MG TABLET 60 MG PO (12:41)
--- NOTE | 2018-07-23 12:51 | DIET.PN ---
Received request to see pt due to low MNA score of 8, indicating decreased PO Intake and significant wt loss. Pt reports wt loss and decreased PO intake were intentional and part of working with her grapple yarder operator on her SIBO problem. DX: afib BMI: 44 Wt: 121kg
--- NOTE | 2018-07-23 16:48 | P.PN_ITS ---
Subjective Date Patient Seen: 07/23/18 Interval history: Patient is a 58-year-old female patient is a 58-year-old f emale with history of paroxysmal atrial fibrillation, RADHA, presented with complaints of palpitations due to AFib with RVR. She had 2 unsuccessful cardioversion attempts in the ER. She remains in AFib on diltiazem drip with heart rate in low 100 range this morning. She feels better with improvement of rate control. Exam Vital Signs (past 8 hours): - 07/23/18 09:03 07/23/18 10:00 07/23/18 11:00 Temperature Pulse Rate 99 H 103 H 92 H Respiratory Rate 15 15 13 Blood Pressure 111/61 95/65 98/58 L Pulse Oximetry 95 96 96 07/23/18 12:00 07/23/18 12:22 07/23/18 13:00 Temperature 98.7 F Pulse Rate 99 H 76 Respiratory Rate 22 15 Blood Pressure 84/64 L 93/34 L Pulse Oximetry 96 98 97 07/23/18 14:00 07/23/18 15:00 07/23/18 16:00 Temperature 98.5 F Pulse Rate 76 74 88 Respiratory Rate 13 13 18 Blood Pressure 105/48 L 90/65 97/55 L Pulse Oximetry 97 96 98 Oxygen Delivery Method Room Air Oxygen Flow Rate 0 Narrative Exam Narrative: GENERAL: Patient is in no acute distress HEENT: Head normocephalic, atraumatic. Mucous membranes moist. CHEST: Clear to auscultation bilaterally. CARDIAC: Irregularly irregular rhythm ABDOMEN: Nondistended, soft, nontender EXTREMITIES: no edema. NEUROLOGICAL: Alert, pleasant, no focal findings SKIN: Warm, dry, no petechiae, no rash Objective Labs Result Diagrams: 07/22/18 19:50 07/23/18 04:45 Labs: Laboratory Results - last 24 hr 07/22/18 07/22/18 07/22/18 19:50 19:50 19:50 WBC 8.4 RBC 5.00 Hgb 15.7 Hct 46.1 H MCV 92.2 MCH 31.3 MCHC 34.0 RDW 13.4 Plt Count 169 Neut % (Auto) 57.5 Lymph % (Auto) 27.7 [place] % (Auto) 9.8 Eos % (Auto) 3.9 Baso % (Auto) 1.1 Neut # (Auto) 4800 Lymph # (Auto) 2300 [place] # (Auto) 800 Eos # (Auto) 300 Baso # (Auto) 100 Sodium 140 Potassium 3.8 Chloride 106 Carbon Dioxide 26 BUN 15 Creatinine 0.90 Estimated GFR > 60.0 BUN/Creatinine Ratio 16.7 Glucose 111 H Hemoglobin A1c Calcium 9.3 Magnesium 2.3 Total Creatine Kinase 62 CK-MB (CK-2) TNP CK-MB (CK-2) Rel Index TNP Troponin I < 0.012 Triglycerides Cholesterol LDL Cholesterol, Calc HDL Cholesterol TSH 2.88 Nasal Screen MRSA (PCR) Urine Opiates Screen Ur Oxycodone Screen Urine Methadone Screen Ur Barbiturates Screen U Tricyclic Antidepress Ur Phencyclidine Scrn Ur Amphetamines Screen U Methamphetamines Scrn Ur MDMA Scrn (Ecstasy) U Benzodiazepines Scrn Urine Cocaine Screen U Marijuana (THC) Screen 07/23/18 07/23/18 07/23/18 00:30 04:30 04:45 WBC RBC Hgb Hct MCV MCH MCHC RDW Plt Count Neut % (Auto) Lymph % (Auto) [place] % (Auto) Eos % (Auto) Baso % (Auto) Neut # (Auto) Lymph # (Auto) [place] # (Auto) Eos # (Auto) Baso # (Auto) Sodium 142 Potassium 3.6 Chloride 111 H Carbon Dioxide 22 BUN 12 Creatinine 0.70 Estimated GFR > 60.0 BUN/Creatinine Ratio 17.1 Glucose 100 Hemoglobin A1c Calcium 8.6 Magnesium 2.2 Total Creatine Kinase CK-MB (CK-2) CK-MB (CK-2) Rel Index Troponin I < 0.012 Triglycerides Cholesterol LDL Cholesterol, Calc HDL Cholesterol TSH Nasal Screen MRSA (PCR) Negative for mrsa Urine Opiates Screen Negative Ur Oxycodone Screen Negative Urine Methadone Screen Negative Ur Barbiturates Screen Negative U Tricyclic Antidepress Negative Ur Phencyclidine Scrn Negative Ur Amphetamines Screen Negative U Methamphetamines Scrn Negative Ur MDMA Scrn (Ecstasy) Negative U Benzodiazepines Scrn Negative Urine Cocaine Screen Negative U Marijuana (THC) Screen Negative 07/23/18 07/23/18 04:45 04:45 WBC RBC Hgb Hct MCV MCH MCHC RDW Plt Count Neut % (Auto) Lymph % (Auto) [place] % (Auto) Eos % (Auto) Baso % (Auto) Neut # (Auto) Lymph # (Auto) [place] # (Auto) Eos # (Auto) Baso # (Auto) Sodium Potassium Chloride Carbon Dioxide BUN Creatinine Estimated GFR BUN/Creatinine Ratio Glucose Hemoglobin A1c 4.9 Calcium Magnesium Total Creatine Kinase CK-MB (CK-2) CK-MB (CK-2) Rel Index Troponin I Triglycerides 92 Cholesterol 133 L LDL Cholesterol, Calc 78 HDL Cholesterol 37 L TSH Nasal Screen MRSA (PCR) Urine Opiates Screen Ur Oxycodone Screen Urine Methadone Screen Ur Barbiturates Screen U Tricyclic Antidepress Ur Phencyclidine Scrn Ur Amphetamines Screen U Methamphetamines Scrn Ur MDMA Scrn (Ecstasy) U Benzodiazepines Scrn Urine Cocaine Screen U Marijuana (THC) Screen Assessment & Plan Assessment & Plan narrative: 58-year-old female admitted with paroxysmal atrial fibrillation with RVR. 1. Paroxysmal atrial fibrillation -remains in AFib, heart rate improved control with adjustment of oral medications, tapered off diltiazem drip -increase diltiazem CD dose from 120 mg q.d. to 120 mg b.i.d., added metoprolol tartrate 25 mg t.i.d. -BP around 100 systolic and seems to be tolerating meds. -patient has not been anticoagulated as her chads 2 Vasc score is 1. Also probably would not benefit from post cardioversion anticoagulation as she never converted to sinus rhythm. -on Lovenox for DVT prophylaxis -patient sees Dr. Pierre in [place] for cardiology and will follow up with him -patient hopefully can discharge tomorrow if ventricular rate controlled and tolerating meds 2. Bicuspid aortic valve on recent outpatient echo 3. Possible dehydration contributing to AFib -received adequate IV fluids, now DC 4. Small intestine bacterial overgrowth -this has been diagnosed and treated by fiber machine tender provider 5. Obstructive sleep apnea -mostly compliant with CPAP Disposition: Improved condition and possible discharge home in a.m. Quality VTE Deep Vein Thrombosis/Pulmonary Embolism Present on Admission: No
[2018-07-23] MEDS: NYSTATIN 500000 UNIT 500000 EACH PO ×2 (17:08→21:13)
--- NOTE | 2018-07-23 17:26 | CM.DANOTE ---
Discharge Planning/Care Management DCP: assessment: initiated: chart review. Case received this morning and discussed in Team Rounds. Pt is a 58 year old female who admitted last night to care of hospitalist team. Dr. Anton noted he would see her later today and that pt was in process of full dx and treatment plan. Payer: [facility]. PCP: listed as Alessandra Streeter Actuarial Associate: Dr. Pierre P: DCP team will check in as more is known to continue this assessment process and to assist prn with d/c issues and options. Admission status: confirmed INPT per [facility] RN Team. Advanced directive, confirm from FAMILY Start: 07/23/18 01:23 Freq: Q24H Status: Active Protocol: Document 07/23/18 01:23 YJN (Rec: 07/23/18 02:20 YN [id number]) Advance Directive, confirm on record Time 01:00 Person contacted Patient, Robert Copy received No CM Discharge Assessment Start: 07/23/18 17:25 Freq: Status: Active Protocol: Document 07/23/18 17:25 ITV (Rec: 07/23/18 17:26 [id number] [id number]) Discharge Planning Assessment Advance Directives? Yes Advance Directives on File No History Provided By Medical Record Prior Living Arrangements House Household Members spouse Document 07/23/18 17:26 ITV (Rec: 07/23/18 17:26 ITV [id number]) Discharge Planning Assessment Advance Directives? Yes Advance Directives on File No History Provided By Patient Prior Living Arrangements House Household Members spouse Review Status In Process Next Review Type Continued Stay Review
--- NOTE | 2018-07-23 22:13 | PC.NURSE ---
Pt off diltiazem gtt since 1440, now on PO metoprolol and diltiazem. HR sustaining 70-100BPM, BP 90s/50s. No dizziness reported this shift. SBA to BR. Extensive teaching on a-fib and new medications.
[2018-07-24 01:20] VITALS: O2SAT 97
[2018-07-24 01:43] VITALS: BP 90/53; PULSE 83; RESP 13; TEMP 35.9; O2SAT 99
[2018-07-24 04:49] VITALS: BP 105/60; PULSE 80; RESP 15; TEMP 36.2; O2SAT 96
--- NOTE | 2018-07-24 05:56 | PM.DS.1 ---
History of Present Illness Date Patient Seen: 07/22/18 Chief complaint: thinks she is in AFIB Narrative: Written by Mechelle PINEDA: The patient is a 58-year-old female with PMH of intermittent, persistent atrial fibrillation (dx in 2014), RADHA (on CPAP), morbid obesity (BMI 46), aerophasia, large hiatal hernia, and intermittent GI discomfort. Currently not anti-coagulated due to low CHADs2-VASc score of 1. No prior history of hypertension, coronary artery disease, diabetes, dyslipidemia, or thyroid disease. No known family history of premature heart disease. Patient presented to the ED on 07/22/2018 with complaints of palpitations. Symptom onset within 24 hr of ED presentation. No other associated symptoms reported. Denies headache, chest pain, dizziness, lightheadedness, decreased exercise tolerance, diaphoresis, nausea, vomiting, or abdominal pain. She has not been suffering from decreased exercise tolerance. On presentation to the ED, EKG revealed AFib RVR of 149. Patient is not anti-coagulated; however, does take fairly often ASA 325 mg QD. Patient was cardioverted twice in the ED, attemps were unsuccessful in restoring normal rhythm. Consequently, patient was given IV Cardizem bolus and started on a Cardizem drip. No prior history of cardioversion. Patient follows with Dr. Pierre (cardiology) in [place]. Last month had an echocardiogram that revealed a congenital valvular heart defect. On Sunday, had a CV CT w/ a reported calcium score of 1. Discharge Providers Date of admission: 07/22/18 21:44 Discharge Date: 07/24/18 Primary care physician: Sydnee Streeter ND Discharge provider: Kelly Ordoñez DO Summary Discharge Diagnosis: 1. Paroxysmal atrial fibrillation with RVR, present on admission. Rapid ventricular rate resolved. 2. Bicuspid aortic valve on recent outpatient echocardiogram. Unchanged. 3. Possible dehydration contributing to atrial fibrillation, present on admission. Resolved. 4. Small intestine bacterial overgrowth , chronic, present on admission. Stable. 5. Obstructive sleep apnea, chronic, present on admission. Stable. 6. Morbid obesity, chronic, present on admission. Stable. Hospital Course: Ale Britton is a 58-year-old female who presented for palpitations and was admitted with paroxysmal atrial fibrillation with RVR. 1. Paroxysmal atrial fibrillation with RVR, present on admission. Rapid ventricular rate resolved. -Patient was cardioverted x2 in ED without success and remains in atrial fibrillation with controlled heart rate with adjustment of oral medications. Tapered off diltiazem gtt. -Increased diltiazem CD from 120 mg daily to 120 mg twice daily and added metoprolol tartrate 25 mg 3 times daily which she seems to be tolerating with rate controlled and systolic blood pressures mid 90s to 100s. -Patient has not been anticoagulated as her [id number] score is 1. Also probably would not benefit from post cardioversion anticoagulation as she never converted to sinus rhythm. Continued aspirin 81 mg daily and Lovenox for DVT prophylaxis. Recommended discussion with Dr. Pierre her outpatient dehydrator tender in regards to anticoagulation versus aspirin only. -Patient is followed by cardiology Dr. Pierre in [place] and will follow up with him. 2. Bicuspid aortic valve on recent outpatient echocardiogram. Unchanged. 3. Possible dehydration contributing to atrial fibrillation, present on admission. Resolved. -Discontinued IV fluids after patient was adequately hydrated. 4. Small intestine bacterial overgrowth , chronic, present on admission. Stable. -This has been diagnosed and treated by textile screen printer provider. 5. Obstructive sleep apnea, chronic, present on admission. Stable. -Mostly compliant with BiPAP. 6. Morbid obesity, chronic, present on admission. Stable. - BMI 43. -Counseled patient regarding lifestyle modification including: Diet and exercise. Status at Discharge Functional status at discharge: independent ambulation Overall status at discharge: patient is back to baseline Exam Vital Signs (past 8 hours): - 07/24/18 01:20 07/24/18 01:43 07/24/18 04:49 Temperature 96.6 F L 97.2 F L Pulse Rate 83 80 Respiratory Rate 13 15 Blood Pressure 90/53 L 105/60 Pulse Oximetry 97 99 96 Oxygen Delivery Method Room Air Oxygen Flow Rate 0 Narrative Exam Narrative: General: Middle-aged female lying in bed and in no acute distress, well-developed, well-nourished, appropriately interactive. HEENT: Normocephalic, atraumatic. External ears without defect. Pupils equal, round, and reactive to light. Anicteric sclerae, moist conjunctivae, and no lid lag. Oropharynx free of erythema and cobble stoning with moist mucosa. Neck: Supple with full range of motion. No jugular venous distension. No bruits. No lymphadenopathy or thyromegaly. Cardiovascular: Heart sounds distant but appears to be irregularly irregular without murmurs, rubs, or gallops appreciated Pulmonary: Clear to auscultation bilaterally without crackles, wheezes, or rhonchi. Normal respiratory effort with no use of accessory muscles. Abdomen: Soft, bowel sounds present, nontender, nondistended. No hepatosplenomegaly or masses appreciated. Extremities: No clubbing, cyanosis, or edema. Skin: Normal temperature, turgor, and texture; no rash, ulcers, or subcutaneous nodules appreciated. Neurological: Cranial nerves grossly intact. Psychiatric: Normal mood and affect. Alert and oriented to person, place, and time. Objective Labs Result Diagrams: 07/22/18 19:50 07/24/18 08:25 Discharge Plan Discharge Plan Patient Disposition: Home Discharge comment: You're being discharged home. Please follow-up with your dehydrator tender, Dr. Pierre, at his next available appointment to discuss your hospitalization, specifically further management of your atrial fibrillation and new cardiac medications. Please have lab work done in one week to check your electrolytes for Dr. Pierre to follow-up. Recommended that you wear your BiPAP at night. Continue lifestyle modification including diet and exercise as discussed. You were provided a Mediterranean diet handout. The [place] [employer] [employer] recommends 150 min of moderate intensity exercise per week. If you are not already this active then start with small obtainable goals. Discharge Med Rec/Prescriptions Prescriptions: New aspirin 81 mg Tablet,Delayed Release (Dr/Ec) 81 mg PO DAILY Qty: 30 RF: 0 metoprolol tartrate 25 mg Tablet 25 mg PO TID Qty: 90 RF: 0 Continued probiotics and prebiotics 1 tab PO DAILY RF: 0 nystatin 500,000 unit Tablet 500,000 unit PO TID RF: 0 cholecalciferol (vitamin D3) [Vitamin D3] 2,000 unit Capsule 2,000 units PO DAILY RF: 0 Changed diltiazem HCl [Cartia XT] 120 mg capsule,extended release 24hr 120 mg PO BID Qty: 60 RF: 0 Other Ambulatory Orders: Basic Metabolic Panel (Routine) Timeframe: 1 Week Location: Laboratory Ordered By: Kelly Ordoñez Magnesium (Routine) Timeframe: 1 Week Location: Laboratory Ordered By: Kelly Ordoñez Follow up/Referrals: Sydnee Streeter ND [Primary Care Provider] - Callum Pierre MD [Non-Staff] - 1 Week Provider Discharge Instructions Diet: Low-fat, Low-sodium and Low-cholesterol Visit Report/Discharge Packet Instructions: The Mediterranean Diet and Good Health, DI for Atrial Fibrillation Visit Report Forms: Stroke Signs & Symptoms Discharge Data Primary Care Provider: Sydnee Streeter Attending Provider: Mechelle Albert Admit Date/Time: 07/22/18 21:44 Quality VTE Deep Vein Thrombosis/Pulmonary Embolism Present on Admission: No
--- NOTE | 2018-07-24 06:48 | PC.NURSE ---
NOC Shift: Pt stable throughout shift, VSS denies any pain, discomfort. Remains in Afib CVR rate controlled under 100 except when OOB to bathroom high to 110. Denies dizziness when up. Stable SBP w/metroprolol added to medication regimen. Plan to discharge to home this AM follow up w/Dr. Pierre cardiology.
[2018-07-24 08:00] VITALS: BP 100/71; PULSE 90; RESP 17; TEMP 36.6; O2SAT 97
[2018-07-24] MEDS: dilTIAZem CD 120 MG CAP PO (08:12)
[2018-07-24] MEDS: ASPIRIN EC 81 MG TABLET PO (08:12)
[2018-07-24] MEDS: METOPROLOL IR 25 MG TABLET PO (08:12)
[2018-07-24] MEDS: NYSTATIN 500000 UNIT 500000 EACH PO (08:12)
[2018-07-24 08:17] VITALS: O2SAT 97
[2018-07-24 08:55] LABS: Blood Urea Nitrogen 12 mg/dL (7-17); Carbon Dioxide 22 mmol/L (22-32); Chloride 108 mmol/L (98-107); Estimated Glomerular Filt Rate > 60.0 mL/min (>60); Glucose 100 mg/dL (70-100); HEMOLYSIS 17 (0-50); Sodium 138 mmol/L (137-145)
== END 2018-07-24 10:20 | disposition home or self-care (01) | DRG 309 ==
LOC: ED 19:05 → AC 21:45 → ICU 23:15
PROVIDERS: Internal Medicine; Admitting Provider Nurse Practitioner Gerontology; Emergency Provider Emergency Medicine; PCP Naturopath; Visit Provider Nurse Practitioner Gerontology
DX: I48.0 Paroxysmal atrial fibrillation (principal); Z68.41 Body mass index [BMI] 40.0-44.9, adult; Q23.1 Congenital insufficiency of aortic valve; E86.0 Dehydration; E66.01 Morbid (severe) obesity due to excess calories; G47.33 Obstructive sleep apnea (adult) (pediatric); K63.89 Other specified diseases of intestine
CPT/HCPCS: 36415; 36591; 71045; 80048; 80061; 80305; 82550; 83036; 83735; 84443; 84484; 85025; 87797; 92960; 93005; 93010; 93306; 94770; 96361; 96365; 96366; 96375; 99152; 99285; 99291; 99292; J1650; J2704

== ENCOUNTER → 2019-03-17 15:50 | Outpatient (CLI) | payer OTHER, SELFPAY ==
[2018-07-23 01:05] VITALS: BMI 44.3
[2019-03-17 16:21] LABS: Add Manual Diff / Slide Review NO; Basophils Absolute Auto 100 /uL (0-100); Eosinophils Absolute Auto 300 /uL (0-450); Eosinophils Percent Auto 4.4 % (2-4); Hematocrit 41.9 % (36-46); Hemoglobin 14.5 g/dL (12.0-16.0); Lymphocytes Absolute Auto 1700 /uL (1100-4500); Lymphocytes Percent Auto 26.8 % (25-40); Mean Corpuscular HGB Conc 34.5 % (30-36); Mean Corpuscular Hemoglobin 32.5 PG (26-34); Mean Corpuscular Volume 94.2 fL (80-100); Monocytes Absolute Auto 600 /uL (0-900); Monocytes Percent Auto 8.5 % (3-14); Neutrophils Absolute Auto 3900 /uL (1500-7000); Neutrophils Percent Auto 59.3 % (50-75); Platelet Count 138 X10^3/uL (150-400); Red Blood Cell Count 4.45 X10^6/uL (4.0-5.2); Red Cell Distribution Width 13.5 % (11.6-14.8); White Blood Cell Count 6.5 X10^3/uL (4.5-11.0)
[2019-03-17 16:35] LABS: Alanine Aminotransferase 86 IU/L (9-52); Albumin 4.1 g/dL (3.5-5.0); Albumin Globulin Ratio 1.6 (1.0-2.8); Alkaline Phosphatase 95 U/L (38-126); Aspartate Aminotransferase 38 IU/L (14-36); Bilirubin Total 0.5 mg/dL (0.2-1.3); Bilirubin Unconjugated 0.4 mg/dL (0.0-1.1); Globulin 2.5 g/dL (1.7-4.1); HEMOLYSIS < 15 (0-50); Total Protein 6.6 g/dL (6.3-8.2)
== END ==
PROVIDERS: PCP Naturopath; Visit Provider Naturopath
DX: R94.5 Abnormal results of liver function studies (principal); D72.1 Eosinophilia
CPT/HCPCS: 36415; 80076; 85025

== ENCOUNTER → 2020-03-18 06:40 | Outpatient (CLI) | payer OTHER, SELFPAY ==
[2018-07-23 01:05] VITALS: BMI 44.3
[2020-03-18 08:33] LABS: Add Manual Diff / Slide Review NO; Basophils Absolute Auto 100 /uL (0-100); Eosinophils Absolute Auto 400 /uL (0-450); Eosinophils Percent Auto 8.1 % (2-4); Hematocrit 43.9 % (36-46); Hemoglobin 14.8 g/dL (12.0-16.0); Lymphocytes Absolute Auto 1600 /uL (1100-4500); Lymphocytes Percent Auto 30.5 % (25-40); Mean Corpuscular HGB Conc 33.7 % (30-36); Mean Corpuscular Hemoglobin 31.3 PG (26-34); Mean Corpuscular Volume 92.9 fL (80-100); Monocytes Absolute Auto 400 /uL (0-900); Monocytes Percent Auto 7.3 % (3-14); Neutrophils Absolute Auto 2800 /uL (1500-7000); Neutrophils Percent Auto 53.1 % (50-75); Platelet Count 149 X10^3/uL (150-400); Red Blood Cell Count 4.73 X10^6/uL (4.0-5.2); White Blood Cell Count 5.3 X10^3/uL (4.5-11.0)
[2020-03-18 09:03] LABS: HEMOLYSIS < 15 (0-50); Potassium 3.9 mmol/L (3.4-5.1)
[2020-03-18 09:04] LABS: Alanine Aminotransferase 36 IU/L (<35); Albumin 4.3 g/dL (3.5-5.0); Albumin Globulin Ratio 1.6 (1.0-2.8); Alkaline Phosphatase 74 U/L (38-126); Aspartate Aminotransferase 31 IU/L (14-36); BUN Creatinine Ratio 20.2 (6-22); Bilirubin Total 0.6 mg/dL (0.2-1.3); Blood Urea Nitrogen 19 mg/dL (7-17); Calcium 9.3 mg/dL (8.4-10.2); Carbon Dioxide 24 mmol/L (22-32); Chloride 109 mmol/L (98-107); Cholesterol 148 mg/dL (140-199); Creatine Kinase 58 U/L (30-135); Estimated Glomerular Filt Rate > 60.0 mL/min (>60); Globulin 2.7 g/dL (1.7-4.1); Glucose 99 mg/dL (70-100); HDL Cholesterol 41 mg/dL (40-60); LDL Cholesterol Calculated 88 mg/dL (<100); Sodium 140 mmol/L (137-145); Triglycerides 97 mg/dL (35-150)
[2020-03-18 09:13] LABS: Vitamin D 25 Hydroxy (D3) 45.7 ng/mL (30.0-100.0)
[2020-03-18 09:14] LABS: High Sensitivity CRP - Cardiac 2.7 mg/L (1.0-3.0); LDL Cholesterol Direct 84 mg/dL (<100)
[2020-03-18 09:34] LABS: TSH w/ Reflex to FT4 3.92 uIU/mL (0.47-4.68)
== END ==
PROVIDERS: PCP Naturopath; Referring Provider Naturopath; Visit Provider Naturopath
DX: I48.0 Paroxysmal atrial fibrillation (principal); E78.5 Hyperlipidemia, unspecified; D72.10 Eosinophilia, unspecified; Z13.21 Encounter for screening for nutritional disorder
CPT/HCPCS: 36415; 80053; 80061; 82306; 82550; 83721; 84443; 85025; 86140

== ENCOUNTER → 2021-12-13 16:25 | Outpatient (CLI) | payer OTHER, SELFPAY ==
[2018-07-23 01:05] VITALS: BMI 44.3
[2021-12-13 17:45] LABS: Alanine Aminotransferase 23 IU/L (<35); Albumin 4.3 g/dL (3.5-5.0); Albumin Globulin Ratio 1.7 (1.0-2.8); Alkaline Phosphatase 80 U/L (38-126); Aspartate Aminotransferase 30 IU/L (14-36); Bilirubin Total 0.3 mg/dL (0.2-1.3); Bilirubin Unconjugated 0.4 mg/dL (0.0-1.1); Globulin 2.6 g/dL (1.7-4.1); HEMOLYSIS < 15 (0-50); Total Protein 6.9 g/dL (6.3-8.2)
== END ==
PROVIDERS: PCP Naturopath; Referring Provider Naturopath; Visit Provider Naturopath
DX: Z51.81 Encounter for therapeutic drug level monitoring (principal)
CPT/HCPCS: 36415; 80076

== ENCOUNTER → 2022-10-04 07:54 | Outpatient (CLI) | payer OTHER, SELFPAY ==
[2018-07-23 01:05] VITALS: BMI 44.3
--- NOTE | 2022-10-04 | DI.MG.S_ITS ---
BILATERAL DIGITAL SCREENING MAMMOGRAM 3D/2D WITH CAD: 10/04/2022 CLINICAL: Routine screening. Family history of breast cancer. Comparison is made to exams dated: 07/10/2018 mammogram, 02/20/2012 mammogram, and 05/05/2016 mammogram - [facility]. Both breasts are almost entirely fatty (category a/<25% glandular tissue). Current study was also evaluated with a Computer Aided Detection (CAD) system. No significant masses, calcifications, or other findings are seen in either breast. There has been no significant interval change. IMPRESSION: NEGATIVE There is no mammographic evidence of malignancy. A 1 year screening mammogram is recommended. Based on the Tyrer Cuzick model (a risk assessment model) the patient's lifetime risk is 3.8% and her 10 year risk is 1.6%. According to the ACR, ACS, and NCCN guidelines, an annual breast MRI exam along with mammogram is recommended if the patient's lifetime risk is 20% or greater. This exam was interpreted at Station ID: [id number]. NOTE: For mammograms, a report in lay terms will be sent to the patient. Approximately 15% of breast malignancies will not be visualized mammographically. In the management of a palpable breast mass, a negative mammogram must not discourage biopsy of a clinically suspicious lesion. Electronically Signed By: Karl sinclair/tyra:10/04/2022 14:52:06 letter sent: Normal Exam ACR BI-RADS Category 1: Negative [id number]
== END ==
PROVIDERS: PCP Naturopath; Referring Provider Internal Medicine; Visit Provider Internal Medicine
DX: Z12.31 Encounter for screening mammogram for malignant neoplasm of breast (principal); Z80.3 Family history of malignant neoplasm of breast
CPT/HCPCS: 77063; 77067

== ENCOUNTER → 2023-10-29 16:39 | Outpatient (CLI) | payer OTHER, SELFPAY ==
[2018-07-23 01:05] VITALS: BMI 44.3
--- NOTE | 2023-10-29 16:40 | DI.RAD.S_ITS ---
PROCEDURE: XR FOOT LT MIN 3V INDICATIONS: Left foot trauma TECHNIQUE: 3 views of the foot were acquired. COMPARISON: None. FINDINGS: Bones: No fractures or dislocations. Mild left foot osteoarthritic changes are seen more notably involving talonavicular joint and calcaneocuboid joint. No suspicious bony lesions. Well-defined plantar and dorsal calcaneal enthesophytes are seen. Soft tissues: No tibiotalar joint effusion. Achilles tendon appears normal. IMPRESSION: Mild left foot osteoarthritis. No acute fracture or dislocation. No gross soft tissue abnormalities. Dictated by: Joe Boykin M.D. on 10/31/2023 at 8:21 Approved by: Joe Boykin M.D. on 10/31/2023 at 8:23
--- NOTE | 2023-10-29 16:40 | DI.RAD.S_ITS ---
PROCEDURE: XR KNEE RT 3V INDICATIONS: Knee injury TECHNIQUE: 3 views of the knee were acquired. COMPARISON: None. FINDINGS: Bones: Probable fracture through the superior pole of the patella. Tricompartmental joint space narrowing with associated osteophytosis. Soft tissues: Large joint effusion. No suspicious soft tissue calcifications. IMPRESSION: Probable fracture through the superior pole of the patella. Correlate point tenderness. [id number] tricompartmental osteoarthritis. Kellgren-Rock Grade 2. Dictated by: Kurt Marquez M.D. on 10/30/2023 at 8:19 Approved by: Kurt Marquez M.D. on 10/30/2023 at 8:20
--- NOTE | 2023-10-29 16:40 | DI.RAD.S_ITS ---
PROCEDURE: XR FOOT RT MIN 3V INDICATIONS: Right foot trauma/injury TECHNIQUE: 3 views of the foot were acquired. COMPARISON: None. FINDINGS: Bones: No fractures or dislocations. Osteoarthritic changes are noted throughout right foot more notably involving talonavicular joint. Well-defined plantar and dorsal calcaneal enthesophytes are seen. No suspicious bony lesions. Soft tissues: No tibiotalar joint effusion. Achilles tendon appears normal. IMPRESSION: 1. No acute right foot fracture or dislocation. 2. Mild right foot joint osteoarthritis. Calcaneal enthesophytes. Dictated by: Joe Boykin M.D. on 10/31/2023 at 8:23 Approved by: Joe Boykin M.D. on 10/31/2023 at 8:27
--- NOTE | 2023-10-29 16:40 | DI.RAD.S_ITS ---
PROCEDURE: XR TIBIA FUBULA RT 2V INDICATIONS: Right leg injury TECHNIQUE: 2 views of the tibia and fibula were acquired. COMPARISON: None. FINDINGS: Bones: No fractures or dislocations. No suspicious bony lesions. Soft tissues: No suspicious soft tissue calcifications or masses. IMPRESSION: No acute bony abnormality. Dictated by: Kurt Marquez M.D. on 10/30/2023 at 8:17 Approved by: Kurt Marquez M.D. on 10/30/2023 at 8:19
--- NOTE | 2023-10-29 16:40 | DI.RAD.S_ITS ---
PROCEDURE: XR TIBIA FIBULA LT 2V INDICATIONS: Left leg injury TECHNIQUE: 2 views of the tibia and fibula were acquired. COMPARISON: None. FINDINGS: Bones: No fractures or dislocations. No suspicious bony lesions. Soft tissues: No suspicious soft tissue calcifications or masses. IMPRESSION: No acute bony abnormality. Dictated by: Kurt Marquez M.D. on 10/30/2023 at 8:20 Approved by: Kurt Marquez M.D. on 10/30/2023 at 8:20
== END ==
PROVIDERS: PCP Naturopath; Referring Provider Physician Assistant Surgical; Visit Provider Physician Assistant Surgical
DX: S89.91XA Unspecified injury of right lower leg, initial encounter (principal); S99.921A Unspecified injury of right foot, initial encounter; S89.92XA Unspecified injury of left lower leg, initial encounter; M17.11 Unilateral primary osteoarthritis, right knee; M19.072 Primary osteoarthritis, left ankle and foot; M19.071 Primary osteoarthritis, right ankle and foot; M77.31 Calcaneal spur, right foot; M79.672 Pain in left foot; X58.XXXA Exposure to other specified factors, initial encounter
CPT/HCPCS: 73562; 73590; 73630

== ENCOUNTER → 2024-09-03 11:24 | Outpatient (CLI) | payer OTHER, SELFPAY ==
[2018-07-23 01:05] VITALS: BMI 44.3
[2024-09-03 11:54] LABS: Add Manual Diff / Slide Review NO; Basophils Absolute Auto 0 /uL (0-100); Basophils Percent Auto 0.7 % (0-2); Eosinophils Absolute Auto 300 /uL (0-450); Eosinophils Percent Auto 5.7 % (2-4); Hematocrit 44.8 % (36-46); Hemoglobin 15.5 g/dL (12.0-16.0); Lymphocytes Absolute Auto 1400 /uL (1100-4500); Mean Corpuscular HGB Conc 34.6 % (30-36); Mean Corpuscular Hemoglobin 31.9 PG (26-34); Mean Corpuscular Volume 92.2 fL (80-100); Monocytes Absolute Auto 500 /uL (0-900); Monocytes Percent Auto 9.1 % (3-14); Neutrophils Absolute Auto 3500 /uL (1500-7000); Neutrophils Percent Auto 60.5 % (50-75); Platelet Count 145 X10^3/uL (150-400); Red Blood Cell Count 4.86 X10^6/uL (4.0-5.2); Red Cell Distribution Width 13.3 % (11.6-14.8); White Blood Cell Count 5.7 X10^3/uL (4.5-11.0)
[2024-09-03 12:12] LABS: Hemoglobin A1C% w Est Avg Glu 4.9 % (4.0-6.0)
[2024-09-03 12:14] LABS: Alanine Aminotransferase 28 IU/L (<35); Albumin 4.6 g/dL (3.5-5.0); Albumin Globulin Ratio 1.8 (1.0-2.8); Alkaline Phosphatase 72 U/L (38-126); Aspartate Aminotransferase 30 IU/L (14-36); BUN Creatinine Ratio 18.3 (6-22); Bilirubin Total 0.8 mg/dL (0.2-1.3); Blood Urea Nitrogen 15 mg/dL (7-17); Calcium 9.4 mg/dL (8.4-10.2); Carbon Dioxide 26 mmol/L (22-32); Chloride 106 mmol/L (98-107); Cholesterol 198 mg/dL (140-199); Estimated Glomerular Filt Rate > 60 mL/min (>60); Globulin 2.5 g/dL (1.7-4.1); Glucose 98 mg/dL (80-110); HDL Cholesterol 55 mg/dL (40-60); HEMOLYSIS < 15 (0-50); LDL Cholesterol Calculated 112 mg/dL (<100); Potassium 4.5 mmol/L (3.4-5.1); Sodium 139 mmol/L (137-145); Total Protein 7.1 g/dL (6.3-8.2); Triglycerides 153 mg/dL (35-150)
[2024-09-03 12:39] LABS: Thyroid Stimulating Hormone 2.01 uIU/mL (0.47-4.68)
== END ==
LOC: LAB 11:26
PROVIDERS: PCP Family Medicine; Referring Provider Naturopath; Visit Provider Naturopath
DX: Z00.00 Encounter for general adult medical examination without abnormal findings (principal); E66.9 Obesity, unspecified; R53.83 Other fatigue
CPT/HCPCS: 36415; 80053; 80061; 83036; 84443; 85025